=== PATIENT | male | born 1980 | race Caucasian/White ===

== ENCOUNTER 2017-07-01 19:09 | Emergency (ER) | payer OTHER ==
[~2017-07-01] VITALS: Ht 162.6 cm; Wt 58.8 kg
[2017-07-01] MEDS ORDERED: EXCETAB81 PO (19:30)
[2017-07-01] MEDS ORDERED: PROP10TA56 (19:30)
[2017-07-01] MEDS ORDERED: HYDR100C (19:30)
[2017-07-01] MEDS ORDERED: SERT-138 (19:30)
--- NOTE | 2017-07-01 21:40 | REPUSA ---
CLINICAL HISTORY: Head trauma COMPARISON: December 27, 2005. TECHNIQUE: Head CT without contrast. Total DLP 834.8 mGy*cm Brain: There is a 3 cm region of right frontal encephalomalacia. No intracranial hemorrhage or acute parenchymal edema. Calvarium: Right frontal craniotomy. No evidence of acute fracture. Sinuses (partially visualized): No hemorrhage fluid levels. IMPRESSION: 1. Postsurgical changes of right frontal craniotomy and right frontal encephalomalacia. 2. No intracranial hemorrhage.
[2017-07-01 21:58] VITALS: BP 112/56
== END 2017-07-01 21:58 | disposition home or self-care (01) ==
LOC: M ED 19:09
DX: S00.03XA Contusion of scalp, initial encounter (principal); S06.0X0A Concussion without loss of consciousness, initial encounter; W22.09XA Striking against other stationary object, initial encounter; Y92.019 Unspecified place in single-family (private) house as the place of occurrence of the external cause; Y93.89 Activity, other specified; Y99.8 Other external cause status; G43.909 Migraine, unspecified, not intractable, without status migrainosus; F32.9 Major depressive disorder, single episode, unspecified; F42.9 Obsessive-compulsive disorder, unspecified; Z79.899 Other long term (current) drug therapy

== ENCOUNTER → 2017-10-07 | Outpatient (REF) | payer OTHER ==
[~2017-10-07] MED LIST: EXCETAB81 PO; HYDR100C; PROP10TA56; SERT-138
== END ==
LOC: M LAB REF 13:39
PROVIDERS: ATTEND Nurse Practitioner Adult Health
DX: R25.1 Tremor, unspecified (principal); R42 Dizziness and giddiness; R53.1 Weakness

== ENCOUNTER 2017-10-20 11:22 | Inpatient (IN) | payer OTHER ==
[~2017-10-20] VITALS: Ht 162.6 cm; Wt 56.0 kg
[2017-10-20] MEDS ORDERED: PRIM250T8 PO (11:32)
[2017-10-20 12:30] LABS: MEAN CORPUSCULAR HEMOGLOBIN 27.9 pg (27.0-33.0); MEAN CORPUSCULAR HGB CONC 32.3 g/dl (32.0-36.5); MEAN CORPUSCULAR VOLUME 86.4 fl (80.0-96.0); PLATELET COUNT, AUTOMATED 330 10^3/uL (150-450); RED CELL DISTRIBUTION WIDTH 13.2 % (11.5-14.5); WHITE BLOOD COUNT 8.9 10^3/uL (4.0-10.0)
[2017-10-20 13:00] LABS: METHADONE URINE NEGATIVE (NEGATIVE)
[2017-10-20 13:08] LABS: ALBUMIN 4.1 GM/DL (3.2-5.2); ALBUMIN/GLOBULIN RATIO 1.14 (1.00-1.93); ALKALINE PHOSPHATASE 110 U/L (45-117); ALT/SGPT 39 U/L (12-78); ANION GAP 7 MEQ/L (8-16); AST/SGOT 19 U/L (7-37); BILIRUBIN,DIRECT < 0.1 MG/DL (0.0-0.2); BILIRUBIN,TOTAL 0.3 MG/DL (0.2-1.0); BLOOD UREA NITROGEN 15 MG/DL (7-18); CARBON DIOXIDE LEVEL 32 MEQ/L (21-32); CHLORIDE LEVEL 99 MEQ/L (98-107); CREATININE FOR GFR 1.32 MG/DL (0.70-1.30); GLOMERULAR FILTRATION RATE > 60.0 (>60); GLUCOSE, FASTING 120 MG/DL (70-105); POTASSIUM SERUM 3.6 MEQ/L (3.5-5.1); SODIUM LEVEL 138 MEQ/L (136-145); TOTAL PROTEIN 7.7 GM/DL (6.4-8.2)
[2017-10-20] MEDS ORDERED: PRIM50TA6 PO ×2 (13:54→14:39)
[2017-10-20] MEDS ORDERED: ZOLO100T PO (14:39)
[2017-10-20] MEDS ORDERED: PROP10TA56 PO (14:39)
[2017-10-20] MEDS ORDERED: HYDR100C PO (14:39)
[2017-10-20] MEDS ORDERED: EXCETAB80 PO (14:39)
[2017-10-20] MEDS ORDERED: MOM 30ML SUSPENSION UDC PO PRN (17:00)
[2017-10-20] MEDS ORDERED: MAALOX 30 ML SUSP *UDC PO PRN (17:00)
[2017-10-20] MEDS ORDERED: traZODone 50 MG TAB PO PRN (17:00)
[2017-10-20] MEDS: ONDANSETRON 4 MG TAB (S0181) PO PRN (17:58)
[2017-10-20] MEDS: SERTRALINE 100 MG TAB PO SCH (17:58)
[2017-10-20] MEDS: hydrOXYzine 50 MG TAB PO PRN (17:58)
[2017-10-20] MEDS: PRIMIDONE 50 MG TAB PO SCH (18:53)
[2017-10-20 19:10] VITALS: BP 124/86
[2017-10-21] MEDS: hydrOXYzine 50 MG TAB PO PRN ×3 (02:12→20:37)
[2017-10-21 06:42] VITALS: BP 135/74
[2017-10-21] MEDS: PRIMIDONE 50 MG TAB PO SCH (08:41)
[2017-10-21] MEDS: PROPRANOLOL 10 MG TAB PO SCH (08:42)
[2017-10-21] MEDS: SERTRALINE 100 MG TAB PO SCH (12:44)
[2017-10-21] MEDS: EXCEDRIN MIGRAINE TABLET PO PRN (12:44)
[2017-10-21 20:34] VITALS: BP 115/73
[2017-10-22 06:43] VITALS: BP 126/75
[2017-10-22 07:18] LABS: ANION GAP 6 MEQ/L (8-16); BLOOD UREA NITROGEN 18 MG/DL (7-18); CALCIUM LEVEL 9.5 MG/DL (8.5-10.1); CARBON DIOXIDE LEVEL 31 MEQ/L (21-32); CHLORIDE LEVEL 102 MEQ/L (98-107); CREATININE FOR GFR 1.38 MG/DL (0.70-1.30); GLOMERULAR FILTRATION RATE > 60.0 (>60); GLUCOSE, FASTING 91 MG/DL (70-105); POTASSIUM SERUM 4.1 MEQ/L (3.5-5.1); SODIUM LEVEL 139 MEQ/L (136-145)
[2017-10-22] MEDS: PROPRANOLOL 10 MG TAB PO SCH (08:11)
[2017-10-22] MEDS: hydrOXYzine 50 MG TAB PO PRN (08:11)
[2017-10-22] MEDS: PRIMIDONE 50 MG TAB PO SCH (08:12)
--- NOTE | 2017-10-22 09:23 | MHHPE ---
DATE OF ADMISSION: 10/20/2017 LEGAL STATUS AT ADMISSION: 9.39 legal status. CHIEF COMPLAINT: "I have been having suicidal thoughts". HISTORY OF PRESENT ILLNESS: 37-year-old male with history of depression, panic disorder and obsessive compulsive disorder admitted to our unit in a 9.39 legal status. According to the chart, patient came to the emergency department with his father for evaluation and treatment of suicidal ideation. Patient reported increased depression and anxiety. Patient states that the suicidal ideation has been exacerbated 5 days ago since he had increased his primidone from 25-50 mg. Patient says that he can be certain that this has been secondary to the change of medication. Patient is followed at the neurology clinic for essential tremor and migraines. He describes his depression as having low energy, poor sleep, poor self-esteem, suicidal thoughts, high anxiety with panic attacks, agoraphobia and also obsessive compulsive disorder (OCD) symptoms that evolve toward "fear of illness" but says that the symptoms are manageable at this point. He takes Zoloft 200 mg daily. There is no evidence of psychotic symptoms. No auditory or visual hallucinations or delusions. PAST MEDICAL HISTORY: Essential tremor. Osteoporosis. Migraine, status post brain tumor with surgical chemotherapy and radiation treatment. He is being followed every 9 months at the neurology clinic. PSYCHIATRIC HISTORY: As above, patient has been diagnosed of depression, obsessive compulsive disorder and panic disorder with agoraphobia. FAMILY HISTORY: Patient denies any psychiatric family history. SUBSTANCE ABUSE HISTORY: Patient denies any acute, current or past problems with substances, drugs or alcohol. SOCIAL HISTORY: Patient was raised by his parents. Patient denies any abuse or neglect during childhood. Patient states that he was diagnosed of obsessive compulsive disorder very early during childhood and later on of depression. Patient finished high school and has an associates degree in [employer]. Patient is living with his parents. Patient has no socialization. His support system is family. PSYCHIATRIC REVIEW OF SYSTEMS: Bipolar disorder/honey. No history of destructibility, grandiosity, flight of ideas or pressured speech. Substance abuse disorder: Patient answers negative to Cut down, annoyance, guilt, eye auto brake technician (CAGE) questionnaire. Somatization disorder: Screening for pain conversion, gastrointestinal (GI) or sexual symptoms negative. Eating disorder: Screening for diet and use of laxatives, eating in binges is negative. Cognitive disorder: Memory, attention, orientation and general information is negative for cognitive disorder. Psychotic disorder: No evidence of delusions, paranoia, grandiosity, jew preoccupation, hallucinations, no looseness of associations. PHYSICAL EXAMINATION: As per physician's assistant chief train dispatcher. LABS AT ADMISSION: CBC is unremarkable except hemoglobin of 13.5 and hematocrit 41.8. CMP is unremarkable except creatinine of 1.32. TSH within normal limits. Urine drug screen (UDS) is positive for barbiturates which he is treated with negative for drugs of abuse, blood alcohol level is negative. MENTAL STATUS EXAMINATION: Patient is dressed in [facility]. Patient is cooperative. His speech is soft and monotone. Has fair eye contact. Mood is anxious and depressed. Affect is restricted. Patient is oriented to time, place, person and situation. Maintains attention and concentration correctly. Instant recall, recent and remote memory are intact. Thought processes are coherent, logical and goal directed. Patient does not have auditory or visual hallucinations. Patient does not have paranoid, persecutory, somatic, grandiose or jew delusions. Patient denies homicidal thoughts but reports suicidal ideation. Judgment and insight is limited. DIAGNOSIS: [place] I: Major depressive disorder, panic disorder with agoraphobia, obsessive compulsive disorder. Watts II: Deferred. Watts III: Essential tremors, osteoporosis, migraine headaches status post brain tumor. INITIAL TREATMENT PLAN: Patient was admitted on a 9.39 legal status. Complete history was obtained. With his permission, family will be contacted and data base will be expanded. His medication regimen will be reviewed and changed accordingly. He will be provided with protected environment. He will be treated with individual, group and milieu therapy. He will also received supportive psychoeducation. Discharge planning will commence immediately. Length of stay will be between 7 and 10 days. Outpatient followup will be strongly recommended. The treatment plan will focus initially on depression and suicidal ideation.
[2017-10-22] MEDS: hydrOXYzine 50 MG TAB PO SCH ×3 (12:02→21:07)
[2017-10-22] MEDS: SERTRALINE 100 MG TAB PO SCH (12:02)
[2017-10-22] MEDS: EXCEDRIN MIGRAINE TABLET PO PRN (17:37)
[2017-10-22 18:00] VITALS: BP 112/69
[2017-10-22] MEDS: DOCUSATE SODIUM 100 MG CAP PO SCH (21:07)
[2017-10-22] MEDS: ONDANSETRON 4 MG TAB (S0181) PO PRN (21:58)
--- NOTE | 2017-10-23 03:52 | MHIPN ---
DATE OF SERVICE: 10/22/2017 HISTORY: 37-year-old male with history of depression, panic disorder and obsessive-compulsive disorder (OCD), status post brain surgery secondary to tumor, was admitted for suicidal ideation. MEDICATIONS: - hydroxyzine 100 mg by mouth four times a day as needed for anxiety - trazodone 50 mg by mouth nightly as needed for insomnia - sertraline 200 mg by mouth every morning - primidone 25 mg by mouth daily SUBJECTIVE: "I'm very anxious." OBJECTIVE: No major changes from yesterday. He continues very worried about his suicidal thoughts and things that may never go away. Patient is unable to contract for safety. Patient has minimum interaction with other patients, has tendency to stay in his room. No side effects from the medication. MENTAL STATUS EXAMINATION: Patient is dressed in [facility]. Patient is cooperative during exam. Speech is soft and monotone, has fair eye contact. Mood is depressed and anxious. Affect is restricted. Patient is oriented to time, place, person and situation. Maintains attention and concentration correctly. Instant recall, recent and remote memory are intact. Thought processes are coherent, logical and goal directed. Patient does not have auditory or visual hallucinations. Patient does not have paranoid, persecutory, somatic, grandiose or orthodoxy delusions. Patient is reporting suicidal thoughts and is unable to contract for safety. Judgment and insight are limited. PLAN: 1. Continue with Zoloft 200 mg by mouth every morning. 2. Primidone 25 mg by mouth every morning to be tapered and discontinued. 3. Change hydroxyzine to 100 mg by mouth four times a day scheduled.
[2017-10-23 06:33] VITALS: BP 133/60
[2017-10-23] MEDS: PRIMIDONE 50 MG TAB PO SCH (07:55)
[2017-10-23] MEDS: PROPRANOLOL 10 MG TAB PO SCH (07:56)
[2017-10-23] MEDS: hydrOXYzine 50 MG TAB PO SCH ×4 (07:56→20:49)
[2017-10-23] MEDS ORDERED: traZODone 50 MG TAB PO PRN (11:00)
[2017-10-23] MEDS: SERTRALINE 100 MG TAB PO SCH (11:59)
--- NOTE | 2017-10-23 16:50 | MHIPN ---
DATE: 10/23/2017 HISTORY: 37-year-old male with history of depression, panic disorder, and obsessive compulsive disorder (OCD), also status post brain surgery due to a tumor. Patient was admitted for suicidal ideation. MEDICATIONS: - hydroxyzine 100 mg by mouth four times a day - trazodone 50 mg by mouth nightly as needed for insomnia - sertraline 200 mg by mouth every morning - primidone 25 mg by mouth daily SUBJECTIVE: "I'm feeling about the same." OBJECTIVE: Patient continues reporting high anxiety, rumination, obsessive compulsive like symptoms. Patient is continuously worried about his suicidal thoughts and he thinks that maybe he is not going to get better and the thoughts never go away. Patient is able to contract for safety in the unit. Patient reports problems sleeping, but does not want to take trazodone because had side effects in the past. We discussed the treatment with the patient. MENTAL STATUS EXAMINATION: Patient is dressed in [facility]. Patient is cooperative. His speech is soft and monotone. He has fair eye contact. Mood is depressed and anxious. Affect is restricted. Patient is oriented to time, place, person, and situation. Attention and concentration is fair. Thought processes are coherent, logical, and goal directed. Patient does not have auditory or visual hallucinations. Patient does not have paranoid, persecutory, somatic, grandiose, or amish delusions. Patient continues to report suicidal thoughts intermittently. No homicidal ideation. Judgment and insight is limited. PLAN: 1. Decrease trazodone to 12.5 mg by mouth nightly as needed for insomnia. 2. Zoloft 200 mg by mouth every morning. 3. Primidone 25 mg by mouth every morning, tapering dose. 4. Hydroxyzine 100 mg by mouth four times a day.
[2017-10-23 18:00] VITALS: BP 114/69
[2017-10-23] MEDS: DOCUSATE SODIUM 100 MG CAP PO SCH (20:49)
[2017-10-24 06:38] VITALS: BP 110/73
--- NOTE | 2017-10-24 08:21 | HPE ---
DATE OF ADMISSION: 10/20/2017 HISTORY OF THE PRESENT ILLNESS: Please refer to psychiatric history and evaluation for further details on this admission. This examination and history is intended for medical issues history, which may need treatment, follow-up or consult on this 37-year-old male. ALLERGIES: No known drug allergies. PRIMARY CARE PROVIDER: Kelin Cota NP NEUROLOGIC: NIKO Penny at [facility]. PSYCHIATRIC: Dr. Rosario in [place]. SOCIAL HISTORY: The patient is single. EtOH none. Smokes none. Recreational drug use none. PAST MEDICAL HISTORY: Migraines. Essential tremors. Osteoporosis. PAST SURGICAL HISTORY: Craniotomy with removal of right frontal brain tumor, 2013. LABORATORY STUDIES: WBC 8.9, hemoglobin 15.5, hematocrit 41.8. Platelets 330. Electrolytes were normal. BUN 15, creatinine 1.32. Urine was positive for barbiturates. HOME MEDICATIONS: - primidone but he is currently weaning off, he has been on 25 and then put up to 50 daily, but after one week he stopped them as he felt it was giving him suicidal ideation. He was instructed to wean off them so he is down to 25 mg currently daily. - vitamin D plus calcium over the counter one by mouth daily REVIEW OF SYSTEMS: 10 systems review was done. He had no physical complaints. PHYSICAL EXAMINATION: 37-year-old cooperative male in no acute distress. Height 64 inches, weight 56 kg, body mass index (BMI) 21.2. Patient is alert and oriented to person and place. Pupils equal and react to light. Extraocular muscles intact. Cornea and sclerae are clear. Conjunctivae are normal. No facial asymmetry. Pharynx, tongue and gums are pink and moist. Tongue is midline. Neck is supple without lymphadenopathy. No thyromegaly. No goiter. Carotids are 2+ without bruit. Chest clear to auscultation without wheeze or retraction. Heart is regular. Abdomen is benign. Bowel sounds are positive. /rectal not done. Extremities show equal strength. Full range of motion. No cyanosis, clubbing or edema. Peripheral pulses are equal and palpable bilaterally. Skin is warm and dry. IMPRESSION/PLAN: 1. Psychiatric plan per psychiatry. 2. Slowly wean primidone. Followup with Stephanie Rea at neurology.
[2017-10-24] MEDS: hydrOXYzine 50 MG TAB PO SCH ×4 (08:24→20:34)
[2017-10-24] MEDS: PRIMIDONE 50 MG TAB PO SCH (08:24)
[2017-10-24] MEDS: PROPRANOLOL 10 MG TAB PO SCH (08:25)
[2017-10-24] MEDS: SERTRALINE 100 MG TAB PO SCH (12:05)
[2017-10-24] MEDS: ACETAMINOPHEN TAB 650MG DOSE (2X325MG) PO PRN (15:43)
--- NOTE | 2017-10-24 17:23 | MHIPN ---
DATE: 10/24/2017 HISTORY: A 37-year-old male with history of depression, panic disorder, and obsessive compulsive disorder, status post brain surgery due to a tumor. The patient was admitted for suicidal ideation. MEDICATIONS: - primidone 25 mg by mouth every morning - sertraline 200 mg by mouth every morning - hydroxyzine 100 mg by mouth four times a day - trazodone 12.5 mg by mouth at bedtime as needed for insomnia SUBJECTIVE: "I could not sleep well last night." OBJECTIVE: The patient continues with obsessive compulsive symptoms, high anxiety, rumination, worried about not getting better or that his suicidal thoughts never go away. The patient is able to contract for safety in the unit. There is no evidence of psychotic symptoms. No auditory or visual hallucinations or delusions. MENTAL STATUS EXAMINATION: The patient dressed in [facility]. The patient is cooperative. Speech is soft and monotone. Has fair eye contact. Mood is depressed and anxious. Affect is restricted. The patient is oriented to time, place, person and situation. Attention and concentration are fair. No auditory or visual hallucinations. No delusions. The patient continues to report suicidal thoughts intermittently. No homicidal ideation. Judgment and insight are limited. PLAN: 1. Continue trazodone 12.5 mg by mouth at bedtime as needed for insomnia. 2. Zoloft 200 mg by mouth every morning. 3. Hydroxyzine 100 mg by mouth four times a day. 4. Primidone 25 mg by mouth daily, tapering dose.
[2017-10-24 18:00] VITALS: BP 126/61
[2017-10-24] MEDS: DOCUSATE SODIUM 100 MG CAP PO SCH (20:34)
[2017-10-25 06:00] VITALS: BP 119/80
[2017-10-25] MEDS: hydrOXYzine 50 MG TAB PO SCH ×4 (08:09→21:35)
[2017-10-25] MEDS: PROPRANOLOL 10 MG TAB PO SCH (08:10)
[2017-10-25] MEDS: PRIMIDONE 50 MG TAB PO SCH (08:10)
[2017-10-25] MEDS: EXCEDRIN MIGRAINE TABLET PO PRN (08:12)
[2017-10-25] MEDS: SERTRALINE 100 MG TAB PO SCH (12:03)
--- NOTE | 2017-10-25 15:37 | MHIPN ---
DATE: 10/25/2017 HISTORY: 37-year-old male with history of depression, panic disorder, and obsessive compulsive disorder, also status post brain surgery due to a tumor. Patient was admitted for suicidal ideation. MEDICATIONS: - primidone 25 mg by mouth daily - sertraline 200 mg by mouth every morning - hydroxyzine 100 mg by mouth four times a day - trazodone 12.5 mg by mouth nightly as needed for insomnia SUBJECTIVE: "I have a migraine headache today." OBJECTIVE: Patient is denying suicidal thoughts during the interview. Patient continues to be highly anxious, preoccupied, with ruminations about his suicidal thoughts and is afraid that he may end up killing himself. Patient is tolerating well the medication. There is no evidence of psychotic symptoms. No auditory or visual hallucinations or delusions. MENTAL STATUS EXAMINATION: Patient is dressed in [facility]. Patient is cooperative. His speech is soft and monotone. Has fair eye contact. Mood is depressed and anxious, but somewhat improved. Affect is restricted. Patient is oriented to time, place, person, and situation. Maintains attention and concentration correctly. Instant recall, recent, and remote memory are intact. Thought processes are coherent, logical, and goal-directed. Patient is able to contract for safety during the interview. Denying suicidal thoughts during the last 24 hours. Judgment and insight are limited. PLAN: 1. Continue Zoloft 200 mg by mouth every morning. 2. Continue hydroxyzine 100 mg by mouth four times a day. 3. Continue trazodone 12.5 mg by mouth nightly as needed for insomnia. 4. Continue medication management, individual and group therapy.
[2017-10-25 18:08] VITALS: BP 116/68
[2017-10-25] MEDS: ONDANSETRON 4 MG TAB (S0181) PO PRN (20:42)
[2017-10-25] MEDS: DOCUSATE SODIUM 100 MG CAP PO SCH (20:42)
[2017-10-25] MEDS: ACETAMINOPHEN TAB 650MG DOSE (2X325MG) PO PRN (22:28)
[2017-10-26 06:47] VITALS: BP 135/76
[2017-10-26 08:21] VITALS: BP 125/78
[2017-10-26] MEDS: PROPRANOLOL 10 MG TAB PO SCH (08:21)
[2017-10-26] MEDS: hydrOXYzine 50 MG TAB PO SCH ×2 (08:22→12:09)
[2017-10-26] MEDS: PRIMIDONE 50 MG TAB PO SCH (08:22)
[2017-10-26] MEDS ORDERED: MYSO50TA5 PO (09:33)
[2017-10-26] MEDS: SERTRALINE 100 MG TAB PO SCH (12:09)
--- NOTE | 2017-10-26 15:33 | MHDS ---
DATE OF ADMISSION: 10/20/2017 DATE OF DISCHARGE: 10/26/2017 LEGAL STATUS ON ADMISSION: 9.39 legal status. HISTORY OF PRESENT ILLNESS: 37-year-old male with a history of depression, panic disorder, and obsessive compulsive disorder (OCD), admitted to our unit on a 9.39 legal status. According to the chart, the patient came to the emergency department with his father for an evaluation and treatment of depression and suicidal thoughts. The patient reported increased depression and anxiety. The patient stated that his suicidal ideation was exacerbated by the increase of primidone from 25 to 50 mg. The patient is absolutely certain that this is the only factor that has brought on the suicidal thoughts. The patient has been followed at the neurology clinic for essential tremor and migraines. The patient reports depression, low energy, poor sleep, poor self esteem, suicidal thoughts, high anxiety and panic attacks with agoraphobia and obsessive compulsive disorder symptoms. This involves "fear of illness." The patient states that his obsessive symptoms are manageable at this point with his medication. During the interview, there was no evidence of psychotic symptoms. No auditory or visual hallucinations or delusions. LABORATORY DATA: On admission, his CBC was unremarkable except hemoglobin of 13.5 and hematocrit 41.8. CMP showed creatinine 1.32. Repeated BMP on 10/22 showed creatinine 1.38, the rest within normal limits. Urine drug screen was negative except barbiturates. Blood alcohol level was negative. HOSPITAL COURSE: After the first evaluation, the patient was admitted for observation and treatment. The patient continued to report suicidal thoughts intermittently. His primidone was prescribed at 25. It was recommended that this medication be tapered over a week. The patient continued taking sertraline 200 mg by mouth daily, propranolol 10 mg by mouth daily. The patient was complaining of insomnia, but was afraid to take medication. It was offered at 12.5 mg as needed, but he preferred not to take it. During this hospital admission, the patient had no complications. On 10/26/2017, the patient was denying any suicidal thoughts. The patient is worried that the thoughts may come back and is afraid to be discharged from the hospital; however, we discussed this fact and agreed that since he was not having any suicidal thoughts that the best is to continue his treatment as an outpatient and return to the emergency room only if the suicidal thoughts return. There are no psychotic symptoms. No auditory or visual hallucinations or delusions. Therefore, he is discharged in stable condition on this date. MENTAL STATUS EXAMINATION: The patient is dressed in [facility]. Patient is cooperative. Speech is clear and coherent with normal rate and is spontaneous. The patient has good eye contact. Mood is slightly anxious and depressed but significantly improved from admission. Affect is appropriate and congruent with mood. Patient is oriented to time, place, person and situation. Maintains attention and concentration correctly. Instant recall, recent and remote memory are intact. Thought processes are coherent, logical and goal directed. Patient does not have auditory or visual hallucinations. Patient denies paranoid, persecutory, somatic and rastafarian delusions. Patient is denying suicidal or homicidal ideation. Judgment and insight are fair. DIAGNOSES: Daven[place] I: Major depressive disorder. Obsessive compulsive disorder. Panic disorder with agoraphobia. [place] II: Deferred. [place] III: Essential tremor, osteoporosis, migraine headaches, status post brain tumor. Medications at discharge: - Zoloft 200 mg by mouth in the morning - hydroxyzine 100 mg by mouth four times a day as needed for anxiety - Inderal 10 mg by mouth daily INSTRUCTIONS TO THE PATIENT: The patient is to continue taking his medications as prescribed and followup appointments. He is advised to maintain absolute sobriety from drugs and alcohol. The patient has scheduled appointment for medication management, individual psychotherapy and primary care physician.
== END 2017-10-26 14:50 | disposition home or self-care (01) | DRG 754 ==
LOC: M ED 11:22 → M ED INP 13:40 → M PSY 15:06
PROVIDERS: ADMIT Psychiatry & Neurology Psychiatry; ATTEND Psychiatry & Neurology Psychiatry
DX: F32.9 Major depressive disorder, single episode, unspecified (principal); F40.01 Agoraphobia with panic disorder; F42.9 Obsessive-compulsive disorder, unspecified; G25.0 Essential tremor; M81.0 Age-related osteoporosis without current pathological fracture; G43.909 Migraine, unspecified, not intractable, without status migrainosus; Z92.3 Personal history of irradiation; Z92.21 Personal history of antineoplastic chemotherapy; Z85.841 Personal history of malignant neoplasm of brain; Z79.899 Other long term (current) drug therapy

== ENCOUNTER 2018-02-03 10:14 | Outpatient (RCR) | payer OTHER | END 2018-02-26 | LOC: M OT 10:14 | DX: Z51.89 Encounter for other specified aftercare (principal); G25.0 Essential tremor | CPT/HCPCS: 97110 ==

== ENCOUNTER 2018-03-03 13:45 | Outpatient (RCR) | payer OTHER | END 2018-03-28 | LOC: M OT 13:45 | DX: Z51.89 Encounter for other specified aftercare (principal); G25.2 Other specified forms of tremor | CPT/HCPCS: 97110 ==

== ENCOUNTER → 2018-10-25 | Outpatient (REF) | payer OTHER ==
[2018-10-25 13:08] LABS: RHEUMATOID FACTOR QUANT < 10.0 IU/ML (<15.0)
[2018-10-27 00:30] LABS: ANTINUCLEAR ANTIBODIES DIRECT Negative (Negative)
== END ==
LOC: M LAB REF 12:32
DX: M25.50 Pain in unspecified joint (principal)
CPT/HCPCS: 86038

== ENCOUNTER → 2018-12-01 | Outpatient (REF) | payer OTHER ==
[~2018-12-01] MED LIST changes: +EXCETAB80 PO; +HYDR100C PO; +MYSO50TA5 PO; +PRIM250T8 PO; +PRIM50TA6 PO; +PROP10TA56 PO; +ZOLO100T PO
[2018-12-01 12:32] LABS: PHOSPHORUS LEVEL 4.1 MG/DL (2.5-4.9)
[2018-12-01 12:41] LABS: CORTISOL AM 3.7 UG/DL (4.3-22.4); PROLACTIN 4.8 NG/ML (2.1-17.7)
[2018-12-04 00:07] LABS: VITAMIN D 1,25 DIHYDROXY 39.6 pg/mL (19.9-79.3)
== END ==
LOC: M LAB REF 11:41
PROVIDERS: ATTEND Nurse Practitioner Adult Health
DX: M81.0 Age-related osteoporosis without current pathological fracture (principal); E55.9 Vitamin D deficiency, unspecified

== ENCOUNTER → 2019-11-02 | Outpatient (REF) | payer OTHER | LOC: M LAB REF 14:19 | PROVIDERS: ATTEND Nurse Practitioner Adult Health | DX: J02.9 Acute pharyngitis, unspecified (principal) ==

== ENCOUNTER → 2020-11-08 | Outpatient (CLI) | payer SELFPAY | LOC: M LABSMTC 10:11 | PROVIDERS: ATTEND Pediatrics | DX: Z20.828 Contact with and (suspected) exposure to other viral communicable diseases (principal) ==

== ENCOUNTER → 2021-08-26 | Outpatient (REF) | payer OTHER | LOC: M LAB REF 13:18 | PROVIDERS: ATTEND Nurse Practitioner Adult Health | DX: F33.41 Major depressive disorder, recurrent, in partial remission (principal); F41.9 Anxiety disorder, unspecified ==

== ENCOUNTER → 2022-11-12 | Outpatient (REF) | payer OTHER | LOC: M LAB REF 11:25 | PROVIDERS: ATTEND Nurse Practitioner Adult Health | DX: E03.9 Hypothyroidism, unspecified (principal) ==

== ENCOUNTER → 2022-12-24 | Outpatient (CLI) | payer OTHER | LOC: M CARPUL 11:08 | PROVIDERS: ATTEND Nurse Practitioner Adult Health | DX: R00.2 Palpitations (principal) ==

== ENCOUNTER → 2023-02-11 | Outpatient (CLI) | payer OTHER | LOC: M WHC 10:34 | PROVIDERS: ATTEND Nurse Practitioner Adult Health | DX: M81.0 Age-related osteoporosis without current pathological fracture (principal) ==

== ENCOUNTER → 2023-03-10 | Outpatient (CLI) | payer OTHER ==
[~2023-03-10] MED LIST changes: +METHACHOLINE KIT INH ONE
== END ==
LOC: M CARPUL 09:30
PROVIDERS: ATTEND Nurse Practitioner Adult Health
DX: R06.02 Shortness of breath (principal)

== ENCOUNTER → 2024-07-27 | Outpatient (CLI) | payer OTHER ==
[~2024-07-27] MED LIST changes: -METHACHOLINE KIT INH ONE; +PROHANCE 279.3MG/ML 15ML VIAL ONE
== END ==
LOC: M PLAIMG 12:26
PROVIDERS: ATTEND Neurological Surgery
DX: C71.9 Malignant neoplasm of brain, unspecified (principal)

== ENCOUNTER → 2024-08-15 | Outpatient (REF) | payer OTHER ==
[~2024-08-15] MED LIST changes: -PROHANCE 279.3MG/ML 15ML VIAL ONE
== END ==
LOC: M LAB REF 13:13
PROVIDERS: ATTEND Nurse Practitioner Adult Health
DX: F33.41 Major depressive disorder, recurrent, in partial remission (principal)

== ENCOUNTER → 2025-08-22 | Outpatient (CLI) | payer OTHER ==
[~2025-08-22] MED LIST changes: +PROHANCE 279.3MG/ML 15ML VIAL ONE
== END ==
LOC: M PLAIMG 11:00
PROVIDERS: ATTEND Neurological Surgery
DX: C71.9 Malignant neoplasm of brain, unspecified (principal)
CPT/HCPCS: 70553; A9576

== ENCOUNTER → 2025-09-06 | Outpatient (REF) | payer OTHER ==
[~2025-09-06] MED LIST changes: -PROHANCE 279.3MG/ML 15ML VIAL ONE
== END ==
LOC: M LAB REF 17:30
PROVIDERS: ATTEND Nurse Practitioner Adult Health
DX: F33.41 Major depressive disorder, recurrent, in partial remission (principal); Z79.899 Other long term (current) drug therapy

== ENCOUNTER → 2025-09-11 | Outpatient (REF) | payer OTHER | LOC: M LAB REF 13:46 | PROVIDERS: ATTEND Nurse Practitioner Adult Health | DX: F33.41 Major depressive disorder, recurrent, in partial remission (principal); F41.9 Anxiety disorder, unspecified ==